=== PATIENT | male | born 1955 ===

== ENCOUNTER 2024-04-09 05:56 | Day surgery (SDC) | payer OTHER ==
[2024-04-09] MEDS ORDERED: fentaNYL CITRATE 50 MCG/ML AMPUL IV ONE (11:30)
[2024-04-09] MEDS ORDERED: MIDAZOLAM HCL 2 MG/2 ML VIAL IV ONE (11:30)
[2024-04-09] MEDS ORDERED: DIPHENHYDRAMINE HCL 50 MG/ML VIAL 1ML IV ONE (11:30)
== END 2024-04-09 13:15 | disposition home or self-care (01) ==
LOC: AMB-ENDOS 05:56
PROVIDERS: ATTEND Surgery
DX: D12.2 Benign neoplasm of ascending colon (principal); D12.5 Benign neoplasm of sigmoid colon; D12.3 Benign neoplasm of transverse colon; D12.4 Benign neoplasm of descending colon; K63.5 Polyp of colon; K64.8 Other hemorrhoids; Z86.010 Personal history of colon polyps